=== PATIENT | male | born 1935 | race Caucasian/White ===

== ENCOUNTER 2025-02-22 15:48 | Emergency (ER) | payer OTHER, SELFPAY ==
[2025-02-22 15:51] VITALS: BP 106/63
--- NOTE | 2025-02-22 17:01 | ED.GENMED ---
History of Present Illness
General
Chief Complaint: Fall
Source: patient and family
Time Seen by Provider: 02/22/25 16:29
History of Present Illness
History of Present Illness:
89-year-old male recently discharged from the hospital secondary to pelvic fracture, currently at a facility, who went to the bathroom successfully but as he was pulling his pants up he lost his balance and fell onto the ground. He does not think
he hit his head. There was no loss of conscious. He denies headache, nausea, vomiting, visual changes, chest pain, shortness of breath, abdominal pain, neck pain. He does note mild pain at the right lower back which he thinks is typical of his
recent pelvic fracture related symptoms. He denies numbness, tingling, weakness, or otherwise any other complaints.
Past History
Past History
ED Past Medical History: Cancer (bladder), COPD, GERD, Hypercholesterolemia and Other (balance issues/ambulatory dysfunction, pelvic fracture)
Social History
Tobacco: Former smoker
Alcohol: None
Drug: None
Living: other
Phy Exam
Physical Exam
Physical Exam:
GENERAL: Alert , in no apparent distress
EYE: pupils equal and reactive, EOMI, no nystagmus, no photophobia
NECK: Supple, no significant adenopathy, no midline tenderness.
ENT: o/p clr, mmm, no buatista, no raccoon, no hemotympanum, no signs of head or facial injury noted on exam.
CARDIAC: Regular rate and rhythm .
LUNGS: Clear breath sounds bilaterally, no acute respiratory distress, no wheezes/rales/rhonchi
ABDOMEN: Soft, without focal tenderness, no r/g, no cvat
NEUROLOGICAL: Alert and oriented, no focal neuro deficits
SKIN: Warm and dry, skin intact.
MUSCULOSKELETAL: No edema, well perfused.
PSYCH: Normal and appropriate interaction.
BACK: min ttp lower sacral midline, otherwise no ttp or other abnl, pt able to sit up in bed easily. neg slr
Course
Orders/Labs/Results
Orders:
Orders
02/22/25 16:29
CT Head W/o Iv Contrast Urgent
Comment:
Reason For Exam: fall on asa
02/22/25 17:01
LS Spine Complete, 4 View [CR Lumbar Spine Comp Min 4 Vw*] Urgent
Comment:
Reason For Exam: fall
Pelvis, 1 or 2 Views CR [CR Pelvis - 1 Or 2 Views ] Urgent
Comment:
Reason For Exam: fall, hx recent pelvic fx
Vital Signs
Initial and Last Documented VS:
Initial Vital Signs
Temp Pulse Resp BP Pulse Ox
97.8 F 88 16 106/63 97
02/22/25 15:51 02/22/25 15:51 02/22/25 15:51 02/22/25 15:51 02/22/25 15:51
Last Documented Vital Signs
Temp Pulse Resp BP Pulse Ox
97.8 F 88 16 106/63 97
02/22/25 15:51 02/22/25 15:51 02/22/25 15:51 02/22/25 15:51 02/22/25 17:04
*Pulse Oximetry
SaO2: 97
Oxygen Mode of Delivery: Room air
Patient hypoxic: no
*Critical Care Note
Total Time (30-74mins, 75-104mins- exclusive of procedures): Not Applicable
Update Note
Update Note:
Patient presents to the Emergency Department with fall
Number and Complexity of Problems Addressed at the Encounter
� Chronic conditions affecting care:
� Acute Exacerbation and/or Progression of Chronic Illness:
� Differential Diagnosis includes: But not limited to neck fracture, intracranial injury, contusion, concussion, new pelvic fracture, LS-spine fracture, etc. etc.
Amount and/or Complexity of Data to be Reviewed and Analyzed
� I performed an independent evaluation of and my interpretation is:
EKG:
CT:Mild to moderate diffuse cerebral and cerebellar volume loss.
2. Mild periventricular white matter leukoaraiosis.
Xrays: read by me, no acute pelvic fx, L1 fx (hx of in prior)
Laboratory Studies:
Other:
� Review of other/old records reveals:
� Clinical information was obtained by an independent historian: Son who is at bedside and states that he was just informed that patient should not be using bathroom on his own counseled patient accordingly
� Prescriptions/Medications Considered but not given:
� Further testing considered but not performed:
Risk of Complications and/or Morbidity or Mortality of Patient Management
� Social determinants of health affecting care:
� Discussion with other providers (PCP, Hospitalists, Consultants, etc):
� Escalation of care including admission/observation vs risk of discharge considered: Patient resting comfortably watching TV no new complaints. Made aware of wet read of x-rays. No new fracture noted, preliminary read however,
formal read pending. Patient will be discharged with instructions for close follow-up. Son is at bedside and will drive him home.
ED Attending Note
-
Portions of this chart may have been created with voice recognition software.� Occasional wrong word or��sound alike� substitutions may have occurred due to the inherent limitations of voice recognition software.
Discharge Plan
Departure
Patient Disposition: Home (Routine Discharge)
Date of Disposition: 02/22/25
Time of Disposition: 18:43
Patient with high blood pressure during this ER visit?: No
Condition: Good
Discharge Problem:
Fall
Instructions: Preventing falls in adults
Prescriptions:
No Action
Anoro Ellipta 1 EACH blister with device
1 ea IH DAILY
clopidogrel 75 MG tablet
75 mg PO DAILY Qty: 90 5RF
aspirin 81 MG tablet,delayed release (DR/EC)
81 mg PO DAILY Qty: 90 5RF
nitroglycerin 0.4 MG tablet, sublingual
0.4 mg sublingual [id number] PRN (Reason: chest pain) Qty: 25 5RF
tamsulosin 0.4 MG capsule
0.4 mg PO BID Qty: 1 0RF
furosemide 20 MG tablet
20 mg PO Q48H
atorvastatin 40 MG tablet
40 mg PO HS
fluticasone propionate 1 SPRAY spray,suspension
1 spray intranasal BID
isosorbide mononitrate 30 MG tablet extended release 24 hr
30 mg PO DAILY Qty: 90 5RF
metformin 500 MG tablet
500 mg PO BID@0800,1700
pantoprazole 40 MG tablet,delayed release (DR/EC)
40 mg PO BID
tramadol 50 MG tablet
25 mg PO Q6HPRN PRN (Reason: mod sev back pain) Qty: 14 0RF
benzonatate 100 MG capsule
100 mg PO TIDPRN PRN (Reason: cough) 0RF
carvedilol 3.125 mg Tablet
1.7562 mg PO BID
finasteride 5 mg Tablet
5 mg PO DAILY
prednisone 20 mg Tablet
40 mg PO DAILY Qty: 4 0RF
guaifenesin 600 mg Tablet Extended Release 12hr
600 mg PO Q12 Qty: 10 0RF
Referrals:
Mike Trejo DO [Family Provider] - Follow up in 2-3 days
Activity Restrictions/Additional Instructions:
IF YOU DEVELOP NECK PAIN, CHEST PAIN, TROUBLE BREATHING, VOMITING, WEAKNESS, SEVERE HEADACHE, INCREASING/NEW BACK PAIN, OR OHTER WORRISOME SIGNS, GO TO THE ER IMMEDIATELY!
Discharge Date and Time
Print Language: INDIAN
[2025-02-22 18:00] VITALS: BP 145/82
[2025-02-22 18:01] VITALS: BMI 24.9
[2025-02-22 18:46] VITALS: BP 154/85
== END 2025-02-22 19:20 | disposition home or self-care (01) ==
LOC: EMR 15:48
PROVIDERS: EMERGENCY PHYSICIAN Emergency Medicine; FAMILY PHYSICIAN Family Medicine
DX: Z04.3 Encounter for examination and observation following other accident (principal); E78.00 Pure hypercholesterolemia, unspecified; J44.9 Chronic obstructive pulmonary disease, unspecified; K21.9 Gastro-esophageal reflux disease without esophagitis; Z85.51 Personal history of malignant neoplasm of bladder; Z87.891 Personal history of nicotine dependence; Z96.641 Presence of right artificial hip joint; W01.0XXA Fall on same level from slipping, tripping and stumbling without subsequent striking against object, initial encounter
CPT/HCPCS: 99284; 70450; 72110; 72170